=== PATIENT | female | born 1940 | race Caucasian/White ===

== ENCOUNTER 2023-10-17 06:16 | Day surgery (SDC) | payer MEDICARE, BC, SELFPAY ==
[2023-10-17] VITALS (8 sets, daily range): BP systolic 143–170; BP diastolic 67–80; BMI 28.1
[2023-10-17 07:08] LABS: Hematocrit 39.1 % (37.0-47.0); Mean Corp Hgb Conc. 33.2 g/dL (33.0-37.0); Mean Corpuscular Hgb 28.8 pg (27.0-31.0); Mean Corpuscular Volume 86.5 fL (81.0-99.0); Mean Platelet Volume 10.5 fL (7.4-10.4); Platelet Count 199 10^3/uL (130-400); Red Blood Cell Count 4.52 10^6/uL (4.20-5.40); Red Cell Dist. Width 13.9 % (11.5-14.5); White Blood Cell Count 4.6 10^3/uL (4.8-10.8)
[2023-10-17] MEDS: LOW STRENGTH ASPIRIN 81 MG PO (07:11)
[2023-10-17] MEDS: NSS 209 ML IV (07:12)
[2023-10-17 07:19] LABS: Blood Urea Nitrogen 13 mg/dl (7-17); Calcium 9.7 mg/dl (8.4-10.2); Carbon Dioxide 31 mmol/L (22-30); Chloride 100 mmol/L (98-107); Estimated Creatinine Clearance 64 ml/min; Glucose 143 mg/dl (70-99); Potassium 4.1 mmol/L (3.5-5.1); Sodium 139 mmol/L (135-145); eGFR > 60.00
[2023-10-17 09:00] LABS: ACT-LR - POC 229 Seconds (116-155)
[2023-10-17 09:09] LABS: ACT-LR - POC 290 Seconds (116-155)
--- NOTE | 2023-10-17 09:13 | ITS.CL.CATH ---
Automation Engineering Technician - Catheterization
Cardiac Catheterization
Procedure Report:
LEFT HEART CATHETERIZATION
Date of Procedure: October 17, 2023
Referring: Dr. Nancy Rubin
PROCEDURES:
1. Left heart catheterization with coronary and single-plane left ventriculography
2. Hemodynamic assessment of the RCA with a [employer] Omni wire. The iFR serially measured above the ischemic threshold
INDICATION: This is an 83-year-old female with a past medical history notable for sarcoidosis, syncope and dizziness with implantable loop recorder in place, hyperlipidemia, and diabetes. She underwent coronary angiography in December 2021 with a 60%
mid RCA lesion. A stress study from February 2023 lacked prone imaging and was notable for a small area of mildly decreased perfusion that was predominantly fixed in the mid inferolateral and apical segments. Symptoms persisted including some vague
chest heaviness and she is now referred for repeat coronary angiography
ACCESS: No right radial pulse. She experience significant spasm and pain with right radial access during her catheterization in December 2021. Arterial access for this procedure was obtained in the right common femoral artery using ultrasound
guidance and micropuncture technique
HEMODYNAMICS : (mmHg)
AO (s/d) : 197/88
LV (s/d) : 193/8
LVEDP : 24
CORONARY FINDINGS
DOMINANCE: Right
LEFT MAIN: Short and unobstructed
LEFT ANTERIOR DESCENDING: The LAD arises normally from the left main and runs in the anterior interventricular groove is a large-caliber vessel. The LAD supplies a single sizable diagonal branch that is a medium to large caliber vessel and has only
minor irregularities. The mid LAD beyond the second diagonal branch tapers to a small caliber vessel as it approaches but does not wraparound the apex. The LAD has only minor irregularities.
CIRCUMFLEX: The circumflex supplies a medium caliber OM1 and terminates in a small bifurcating OM 2. Only minor irregularities are noted
RIGHT CORONARY ARTERY: The right coronary artery is a very large caliber dominant vessel with tandem 60% and 60-70% stenosis in the mid vessel. The distal RCA has only minor luminal irregularities. The PDA is widely patent. The posterolateral
branch is large and bifurcating. The iFR was serially measured with the tip of the Omni wire in the distal RCA. The iFR serially measured above the ischemic threshold at 0.96, 0.96, and 0.96. The Omni wire was withdrawn to the guide catheter and
the Pd/Pa measured 1.0 at the guide catheter confirming no baseline draft
VENTRICULOGRAPHY: Left ventriculography was performed in an [place] projection. The digital single-plane left ventricular ejection fraction is estimated at 60%
HEMODYNAMIC ASSESSMENT OF THE RCA WITH A [place] OMNI WIRE: The origin of the RCA was cannulated with a 6 Fr JR4 guide catheter. Intravenous heparin was administered and the ACT was followed during the procedure. Two hundred micrograms of
intracoronary nitroglycerin was given through the guide catheter. A [employer] Omni wire was advanced to the guide catheter tip and normalized to guide catheter pressure. The Omni wire was then carefully manipulated across the stenosis in the mid RCA
and into the distal vessel where the iFR serially measured above the ischemic threshold at 0.96, 0.96, and 0.96. The Omni wire was withdrawn to the guide catheter tip where the resting Pd/Pa measured 1.0 confirming no baseline drift
RADIATION SUMMARY: Fluoro Time (min): 4.6, Dose (mGy): 214, DAP (Gy.cm2) : 17.4
Closure Device: 6 [place] Angio-Seal RFA
CONCLUSIONS
1. Coronary artery disease involving tandem lesions in the mid RCA which have angiographically progressed slightly when compared to the last catheterization from December 2021. However, the hemodynamic assessment of the RCA remains stable and above
the ischemic threshold with the iFR serially measuring 0.96, 0.96, and 0.96 which is well above the ischemic threshold. PCI was deferred.
2. Preserved left ventricular systolic function
RECOMMENDATIONS
1. Continued medical therapy and risk modification.
2. She will follow-up with Dr. Rubin
Copy to: Dr. Nancy Rubin
== END 2023-10-17 12:30 | disposition home or self-care (01) ==
LOC: CATH 06:16
PROVIDERS: ATTENDING PHYSICIAN Internal Medicine Interventional Cardiology; FAMILY PHYSICIAN Internal Medicine; OTHER PHYSICIAN Internal Medicine Cardiovascular Disease
DX: I25.10 Atherosclerotic heart disease of native coronary artery without angina pectoris (principal); R07.89 Other chest pain; I44.7 Left bundle-branch block, unspecified; I10 Essential (primary) hypertension; E78.5 Hyperlipidemia, unspecified; D86.9 Sarcoidosis, unspecified; E11.9 Type 2 diabetes mellitus without complications; Z85.3 Personal history of malignant neoplasm of breast; Z79.82 Long term (current) use of aspirin
CPT/HCPCS: C1769; C1894; 76937; 80048; 85027; 85347; 93005; 93458; 93571; C1760; Q9967

== ENCOUNTER 2023-12-19 12:57 | Day surgery (SDC) | payer MEDICARE, BC, SELFPAY ==
[2023-12-19 13:12] VITALS: BP 182/96; BMI 26.2
[2023-12-19 13:32] LABS: Glucose - Point of Care 133 mg/dl (70-99)
[2023-12-19 14:56] VITALS: BP 133/77
[2023-12-19 15:00] VITALS: BP 162/64
[2023-12-19 15:15] VITALS: BP 147/66
[2023-12-19 15:17] LABS: Glucose - Point of Care 130 mg/dl (70-99)
[2023-12-19 15:30] VITALS: BP 139/66
[2023-12-19 15:45] VITALS: BP 134/69
--- NOTE | 2023-12-19 16:42 | ITS.CL.IMPLP ---
Pow[employer]er - Implant Loop
Implant Loop
Procedure Report:
Primary Physician: Thierno Us MD
Primary Electroplater Automatic: Nancy Rubin DO
Procedure Date: 12/19/2023
Procedure:
1. Removal of Implanted Loop Recorder
History/Indication:
1. See office H&P for complete history.
2. Patient is a pleasant 83 year old female with a past medical history significant HTN, HLD, CAD, LBBB, statin intolerance, DM2, Breast CA, chronic near syncope/dizziness, peripheral neuropathy. Patient underwent ILR implant 2021 which did not
reveal an arrhythmia. Device has reached end of service. Following discussion in office, patient to have ILR explanted without re-implant.
Methods:
After informed consent was obtained, the patient was brought to the EP laboratory. Continuous ECG, blood pressure, and pulse oximetry were initiated. Sedation was not required.
.
The left chest was prepared and draped in a sterile fashion. A time-out was called. Local anesthesia was injected in the subcutaneous tissue overlying the ILR. An incision was made into the chronic scar. The subcutaneous tissue was dissected the
level of the chronic capsule. The capsule was opened and the ILR was removed.
The pocket was flushed with antibiotic solution and hemostasis was assured. Absorbable suture was used to close the wound. Manual pressure was applied until hemostasis resulted. Topical skin adhesive was applied to the skin.
Explanted device: [employer] Model: Reveal Plus [id number], Serial#[id number]
Conclusions:
1. Successful removal of ILR
Recommendations:
1. Discharge to home
2. Follow-up will be arranged in the office 7-10 days post-discharge
Rohit Madrid DO
Clinical Cardiac Training Associate
cc: Thierno Us MD; Nancy Rubin DO
== END 2023-12-19 16:00 | disposition home or self-care (01) ==
LOC: CATH 12:57
PROVIDERS: ATTENDING PHYSICIAN Internal Medicine Cardiovascular Disease; FAMILY PHYSICIAN Internal Medicine; OTHER PHYSICIAN Internal Medicine Cardiovascular Disease
DX: Z09 Encounter for follow-up examination after completed treatment for conditions other than malignant neoplasm (principal); R42 Dizziness and giddiness; I10 Essential (primary) hypertension; E78.5 Hyperlipidemia, unspecified; I25.10 Atherosclerotic heart disease of native coronary artery without angina pectoris; I44.7 Left bundle-branch block, unspecified; E11.9 Type 2 diabetes mellitus without complications; Z85.3 Personal history of malignant neoplasm of breast; Z79.82 Long term (current) use of aspirin
CPT/HCPCS: 33286; 82962

== ENCOUNTER → 2025-01-25 09:22 | Outpatient (REF) | payer MEDICARE, BC, SELFPAY | LOC: HWRCS 09:22 | PROVIDERS: ATTENDING PHYSICIAN Internal Medicine Cardiovascular Disease; FAMILY PHYSICIAN Internal Medicine | DX: I25.118 Atherosclerotic heart disease of native coronary artery with other forms of angina pectoris (principal); R07.89 Other chest pain | CPT/HCPCS: 93306 ==